=== PATIENT | male | born 1960 ===

== ENCOUNTER 2022-06-04 07:45 | Emergency (ER) | payer SELFPAY ==
[2022-06-04 08:31] LABS: PTT,PARTIAL THROMBOPLSTIN TIME 26.5 SEC (22.0-34.0)
[2022-06-04 08:34] LABS: ANION GAP 10.4 mEq/L (7-13); CHLORIDE,CL 103 mmol/L (98-107); SODIUM,NA 138 mmol/L (136-145)
[2022-06-04 08:35] LABS: ESTIMATED GFR 69 mL/min (>=60)
[2022-06-04 08:53] LABS: CORONAVIRUS COVID-19 NAA NEGATIVE (NEGATIVE)
== END 2022-06-04 09:25 | disposition home or self-care (01) ==
LOC: DL.ED 07:45
DX: J18.9 Pneumonia, unspecified organism (principal); I45.4 Nonspecific intraventricular block; Z20.822 Contact with and (suspected) exposure to COVID-19
CPT/HCPCS: 0240U; 36415; 71045; 80053; 82150; 83605; 83690; 83880; 84484; 85025; 85379; 85610; 85730; 86140; 93005; 99285